=== PATIENT | female | born 1975 ===

== ENCOUNTER 2025-02-11 08:36 | Outpatient (REF) | payer OTHER, SELFPAY ==
[2025-02-11 14:50] LABS: MANUAL DIFF FLAG NO
[2025-02-11 14:58] LABS: Hematocrit 38.6 % (37.0-47.0); Hemoglobin 12.6 g/dl (12.0-16.0); Imm Gran Abs Auto 0.03 X10*3/uL (0.00-0.03); Imm Gran Pct Auto 0.3 % (0.0-0.4); Lymphocytes Absolute Auto 2.2 X10*3/uL (1.2-4.9); Mean Corpuscular HGB Conc 32.6 g/dl (31.0-35.0); Mean Corpuscular Hemoglobin 30.8 pg (27.0-33.0); Mean Corpuscular Volume 94.4 fL (80.0-98.0); NRBC Abs Auto 0.000 X10*3/uL (0.0-0.012); NRBC Pct Auto 0.0 /100WBC (0.0-0.2); Platelet Count 275 X10*3/uL (160-400); Red Blood Count 4.09 X10*6/uL (4.20-5.50); White Blood Count 8.8 X10*3/uL (4.8-10.8)
[2025-02-11 15:44] LABS: Alanine Aminotransferase 13 U/L (0-31); Aspartate Amino Transferase 20 U/L (5-31); Estimated Glomerular Filt Rate > 60
== END 2025-02-11 08:37 | disposition home or self-care (01) ==
LOC: HO.HKASLDS 08:36
PROVIDERS: PCP Internal Medicine; Visit Provider Internal Medicine Rheumatology
DX: M25.512 Pain in left shoulder (principal); Z79.1 Long term (current) use of non-steroidal anti-inflammatories (NSAID)
CPT/HCPCS: 36415; 82565; 84450; 84460; 85025

== ENCOUNTER 2025-02-11 08:36 | Outpatient (AMB) | payer OTHER, SELFPAY ==
--- NOTE | 2025-02-11 08:39 | MHC.OFFVIS ---
Vital Signs 02/11/25 08:44 Height 5 ft 1.81 in Weight 102 lb 4.712 oz BMI 18.8 BP 98/60 Blood Pressure Location Rt brachial Position Sitting Pulse 89 Pulse Source Pulse Oximeter Pulse Oximetry (%) 100 Oxygen Delivery Method Room Air Intake Visit Reasons: OA Intake Note: Pt presents today for an OA follow up. Accompanied by: Self / Same As Patient Allergies No Known Allergies (No Known Allergies*) Allergy (Verified 02/11/25 08:45) HPI HPI OA: Details: She has pain in bilateral shoulder pain. Limited ROM. SHe saw [facility] and received cortisone injection with benefit in improving ROM but she continued to experience pain in shoulders now spreading to biceps area. Failed aleve, ibuprofen, tylenol 500mg -100mg q8h. Nocturnal pain wakes her up at night. [facility] ordered PT but she has to schedule. She continues to experience coccyx pain. She sees [facility] who ordered an x-ray. She will be following up with [facility] for results. She uses a donut cushion with little relief. [facility] Medical History (Updated 02/11/25 @ 09:22 by Jermaine Sharpe MD) Plantar fasciitis Osteoarthritis Primary localized osteoarthritis of hips, bilateral Back ache Arthralgia of hand Arthralgia Physical Exam Vital Signs: Last Vital Signs Pulse 89 02/11/25 08:44 BP 98/60 02/11/25 08:44 Pulse Ox 100 02/11/25 08:44 Oxygen Delivery Method Room Air 02/11/25 08:44 BMI result Body Mass Index 18.8 Const Other: General: Comfortable CVS: RRR Respiratory: clear to auscultation bilaterally. Good respiratory effort Skin: No lesions seen MSK: Tender to palpate anterior and superior bilateral shoulders. No subacromial tenderness. She has full range of motion of shoulders but with pain. Tender to palpate biceps region. No joint swelling. Assessment & Plan Assessment & Plan (1) Bilateral shoulder pain: Comment: Suspect chronic rotator cuff tendinopathy. We discussed conservative management. Failed Tylenol, ibuprofen, Aleve, right shoulder cortisone injection 07/2024 [facility]. In the past she had partial relief with meloxicam in treating chronic back pain. Celebrex exacerbated IBD. We discussed using alternative NSAID nabumetone for pain control. Patient agrees with plan. Code(s): M25.511 - Pain in right shoulder; M25.512 - Pain in left shoulder Category: Medical Qualifiers: Chronicity: chronic Qualified Code(s): M25.511 - Pain in right shoulder; M25.512 - Pain in left shoulder; G89.29 - Other chronic pain Plan: Start nabumetone 500 mg twice a day. Okay to use Tylenol 500 mg to 1000 mg q.8 hourly PRN. She will call office in 2 weeks if pain is not controlled. I will then increase nabumetone to 750 mg twice a day. Apply heat to shoulders Schedule PT ordered by orthopedic surgeon X-ray bilateral shoulders ordered . Patient prefers to have x-rays done at [facility]. Requisition given to patient. 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 (nsaid): Code(s): Z79.1 - jail (current) use of non-steroidal anti-inflammatories (NSAID) Category: Medical Plan: See above Orders: Orders Alanine Aminotransferase Today Z79.1 - sample grinder (current) use of non-steroidal anti-inflammatories (NSAID) Aspartate Amino Transferase Today Z79.1 - sample grinder (current) use of non-steroidal anti-inflammatories (NSAID) Creatinine Today Z79.1 - jail (current) use of non-steroidal anti-inflammatories (NSAID) Complete Blood Count Auto Diff Today Z79.1 - sample grinder (current) use of non-steroidal anti-inflammatories (NSAID) XR Shoulder Reece min 2V Today M25.511 - Pain in right shoulder, M25.512 - Pain in left shoulder Medications: New nabumetone with food 500 mg PO BID 60 tabs 2RF Coding Level of Care Code Est Pt Level 3 (84289) Complex EM visit Add On G2211 Diagnoses Chronic pain of both shoulders M25.511; M25.512; G89.29 Chronicity: chronic 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
[2025-02-11 08:44] VITALS: BP 98/60; PULSE 89; O2SAT 100; BMI 18.8
== END 2025-02-11 09:21 | disposition home or self-care (01) ==
LOC: HO.RHES 08:37
PROVIDERS: PCP Internal Medicine; Visit Provider Internal Medicine Rheumatology
DX: M25.511 Pain in right shoulder (principal); M25.512 Pain in left shoulder; G89.29 Other chronic pain; Z79.1 Long term (current) use of non-steroidal anti-inflammatories (NSAID)
CPT/HCPCS: 99213